=== PATIENT | female | born 1960 | race Asian ===

== ENCOUNTER 2016-06-08 13:40 | Outpatient (CLI) | payer OTHER ==
--- NOTE | 2016-06-08 15:46 | DIAGNOSTIC IMAGING REPORT ---
PROCEDURE: US VENOUS - LEFT EXT INDICATION: PAIN IN LEFT CALF TECHNIQUE: Duplex sonography of the deep venous system in the left lower extremity was performed. Compression and augmentation techniques were used. COMPARISON: None. FINDINGS: Each interrogated segment of deep vein from the common femoral vein into the calf veins demonstrates normal compressibility, augmentation and/or color Doppler flow without filling defect. No evidence of significant soft-tissue edema, soft-tissue mass or cyst. IMPRESSION: 1. No deep venous thrombosis in the left lower extremity.
== END 2016-06-08 23:00 ==
LOC: US SRH 13:40
DX: M79.662 Pain in left lower leg (principal)

== ENCOUNTER 2016-08-07 07:49 | Outpatient (CLI) | payer OTHER ==
--- NOTE | 2016-08-07 11:25 | DIAGNOSTIC IMAGING REPORT ---
PROCEDURE: MG BILATERAL SCREENING W/CAD INDICATION: SCREENING TECHNIQUE: Bilateral CC and MLO digital views. COMPARISON: Compared to 06/28/2015, 04/27/2014, and 03/25/2012. FINDINGS: Computer-aided detection applied. Moderately dense. No change. IMPRESSION: 1. Negative mammogram RESULT CODE: 1- Negative. A. A negative report should not delay biopsy if a dominant or clinically suspicious mass is present. 10-15% of cancers are not identified by x-ray. B. A negative report may reinforce clinical impression. C. Adenosis and dense breasts may obscure an underlying neoplasm. D. False positive reports average 6-10%. E.. A yearly screening mammogram is recommended. A reminder letter will be scheduled.
== END 2016-08-07 23:00 ==
LOC: MAM SRH 07:49
DX: Z12.31 Encounter for screening mammogram for malignant neoplasm of breast (principal)